=== PATIENT | male | born 2000 | race Caucasian/White ===

== ENCOUNTER 2024-05-08 16:38 | Emergency (ER) | payer OTHER, SELFPAY ==
[2024-05-08 16:39] VITALS: BP 134/75; PULSE 71; RESP 14; TEMP 36.4; O2SAT 98; BMI 28.8
--- NOTE | 2024-05-08 16:52 | ED_ITS ---
HPI - Wound/Laceration <Jami Stephens PA-C - Last Filed: 05/08/24 18:24> General Chief Complaint: Wound/Laceration Stated Complaint: lac on rt leg Time Seen by Provider: 05/08/24 16:52 Source: patient Mode of arrival: Ambulatory History of Present Illness HPI narrative: Mr. De La Rosa is a pleasant 23-year-old male with no reported past medical history who presents to the emergency department for a right ludwig laceration that occurred approximately 5 hours prior to arrival. [place] he collided with the person sitting next to him and that person's snowboard sliced his right ludwig. The snowboard sliced through his no pants and caused an anterior, mid ludwig straight laceration. Patient reported that he did have significant bleeding down the leg [place] with immediate cessation of bleeding. He reports only mild discomfort from the laceration right now, no other injuries from the fall. No pain with ambulation. States that his Tdap is up-to-date. He took no medications prior to arrival. Related Data Allergies Allergy/AdvReac Type Severity Reaction Status Date / Time No Known Drug Allergies Allergy Verified 05/08/24 16:46 Review of Systems <Jami Stephens PA-C - Last Filed: 05/08/24 18:24> Review of Systems ROS Unobtainable: All systems reviewed & are unremarkable except as noted in HPI and below Patient History <Jami Stephens PA-C - Last Filed: 05/08/24 18:24> Social History Smoking Status: Unknown if ever smoked Smoking Status: Unknown if ever smoked Exam <Jami Stephens PA-C - Last Filed: 05/08/24 18:24> Narrative Exam Narrative: GENERAL: 23 year old patient appears stated age. Well-developed patient, in no acute distress. HEAD: Atraumatic. Normocephalic. EYES: Extraocular motions intact. No scleral icterus. No injection or drainage. ENT: Nose without bleeding, purulent drainage. NECK: Trachea midline. Cervical ROM intact. CARDIOVASCULAR: Regular rate and rhythm. Strong DP and PT pulses bilaterally. RESPIRATORY: Nonlabored respirations. EXTREMITIES: No edema or joint tenderness. Proximally 4 cm linear laceration across the anterior right mid ludwig. Bleeding controlled with direct pressure however bleeding does resume after Removing pressure with slow ooze. No bony ludwig, knee, ankle tenderness. BACK: Nontender without deformity or crepitance. NEURO: AOx3. Clear speech. Moves all 4 extremities appropriately. Initial Vital Signs Initial Vital Signs: Vital Signs Temperature 97.6 F 05/08/24 16:39 Pulse Rate 71 05/08/24 16:39 Respiratory Rate 14 05/08/24 16:39 Blood Pressure 134/75 05/08/24 16:39 Pulse Oximetry 98 05/08/24 16:39 Oxygen Delivery Method Room Air 05/08/24 16:39 <Daniella Vargas MD - Last Filed: 05/26/24 07:36> Initial Vital Signs Initial Vital Signs: Vital Signs Temperature 97.6 F 05/08/24 16:39 Pulse Rate 71 05/08/24 16:39 Respiratory Rate 14 05/08/24 16:39 Blood Pressure 134/75 05/08/24 16:39 Pulse Oximetry 98 05/08/24 16:39 Oxygen Delivery Method Room Air 05/08/24 16:39 Procedures <Jami Stephens PA-C - Last Filed: 05/08/24 18:24> Laceration Repair Laceration 1: Time of procedure: 18:00 Site: lower extremity (middle ludwig) Side (If applicable): right Size (cm): 4 Description: linear Depth: simple, single layer Local Anesthetic: lidocaine 1% and with epi Amount of anesthesia used (mL): 5 Pre-repair: wound explored and irrigated extensively (cleansed with betadine diluted) Skin layer suture size: 4-0 Number of sutures: 7 Technique: simple, interrupted Course <Jami Stephens PA-C - Last Filed: 05/08/24 18:24> Orders Ordered: Discontinued Medications Acetaminophen (Acetaminophen 325 Mg Tablet) 975 mg PO NOW ONE Stop: 05/08/24 17:07 Last Admin: 05/08/24 17:10 Dose: 975 mg Documented By: YULISSA Bacitracin (Bacitracin Oint 0.9 Gm Pckt) 1 applic TOP NOW ONE Stop: 05/08/24 18:06 Last Admin: 05/08/24 18:11 Dose: 1 applic Documented By: YULISSA Cephalexin HCl (Cephalexin 250 Mg Capsule) 500 mg PO NOW ONE Stop: 05/08/24 18:06 Last Admin: 05/08/24 18:11 Dose: 500 mg Documented By: YULISSA Ibuprofen (Ibuprofen 400 Mg Tablet) 400 mg PO NOW ONE Stop: 05/08/24 17:07 Last Admin: 05/08/24 17:10 Dose: 400 mg Documented By: YULISSA Lidocaine/Epinephrine (Lidocaine 1% W/Epi 20ml) 5 ml SUBCUT NOW ONE Stop: 05/08/24 17:07 Last Admin: 05/08/24 17:13 Dose: 5 ml Documented By: YULISSA Vital Signs Vital signs: Vital Signs - 8 hr 05/08/24 16:39 Temperature 97.6 F Pulse Rate 71 Respiratory Rate 14 Blood Pressure 134/75 Pulse Oximetry 98 Oxygen Delivery Method Room Air <Daniella Vargas MD - Last Filed: 05/26/24 07:36> Orders Ordered: Discontinued Medications Acetaminophen (Acetaminophen 325 Mg Tablet) 975 mg PO NOW ONE Stop: 05/08/24 17:07 Last Admin: 05/08/24 17:10 Dose: 975 mg Documented By: YULISSA Bacitracin (Bacitracin Oint 0.9 Gm Pckt) 1 applic TOP NOW ONE Stop: 05/08/24 18:06 Last Admin: 05/08/24 18:11 Dose: 1 applic Documented By: YULISSA Cephalexin HCl (Cephalexin 250 Mg Capsule) 500 mg PO NOW ONE Stop: 05/08/24 18:06 Last Admin: 05/08/24 18:11 Dose: 500 mg Documented By: YULISSA Ibuprofen (Ibuprofen 400 Mg Tablet) 400 mg PO NOW ONE Stop: 05/08/24 17:07 Last Admin: 05/08/24 17:10 Dose: 400 mg Documented By: YULISSA Lidocaine/Epinephrine (Lidocaine 1% W/Epi 20ml) 5 ml SUBCUT NOW ONE Stop: 05/08/24 17:07 Last Admin: 05/08/24 17:13 Dose: 5 ml Documented By: YULISSA Vital Signs Vital signs: Vital Signs - 8 hr 05/08/24 16:39 Temperature 97.6 F Pulse Rate 71 Respiratory Rate 14 Blood Pressure 134/75 Pulse Oximetry 98 Oxygen Delivery Method Room Air MDM - Wound/Laceration <Jami Stephens PA-C - Last Filed: 05/08/24 18:24> [facility] Narrative Medical decision making narrative: 23-year-old male presents to the emergency department for a laceration to his right ludwig that occurred 5 hours prior to arrival. Tdap is reported up-to-date < 5 years. Differential diagnosis includes but is not limited to laceration, infection, foreign body, bony injury, etc. On exam patient is in no acute distress, nontoxic appearing, vital signs within normal limits. He has a 4 cm linear laceration across the middle of the right ludwig. Slow ooze bleeding Controlled with direct pressure. Right lower extremity is neurovascularly intact with strong pulses, no bony tenderness. After shared decision-making with the patient, we will proceed with ibuprofen and Tylenol for pain, lidocaine with epi for wound, and laceration repair with sutures. Patient tolerated procedure well, 7 sutures placed, advised removal in 8-10 days. Because of the dirty nature of the wound occurring through the patient's pant leg, we will treat empirically with cephalexin 3 times a day x5 days. First dose of antibiotic was given in the ER, bacitracin and nonadherent dressing applied to the wound. Extensively discussed proper wound care and signs and symptoms of infection to return to the ER for. Patient verbalized understanding of all information and is stable for discharge. Discharge Plan Departure Patient Disposition: Home Clinical Impression: Laceration of leg, right Instructions: DI for Laceration Repair Activity Restrictions/Additional Instructions: Today you had a laceration to your right ludwig. We have placed 7 sutures. They need to be removed in 8-10 days. You may do this in your doctor's office, the [id number], or here if necessary. Please keep the dressing on your wound clean, dry, and intact for the next 24 hours. After this time, you may remove the dressing and gently clean the wound with soap and water, then pat dry. Keep the wound clean and covered. Avoid soaking the wound in any water such as a bath, pool, or the ocean. If you develop any signs of wound infection such as increased redness, pus drainage, streaking redness, or fevers, please return to the ER immediately for evaluation. Once sutures are removed and the wound has healed, apply sunscreen daily to reduce the appearance of scars. Please take Ibuprofen (Motrin/Advil) or Acetaminophen (Tylenol) for pain. These are available over the counter. You may take Ibuprofen 600 mg every 8 hours with food for pain. You may also take Acetaminophen 650 mg every 4-6 hours for pain. Do not exceed 3000 mg of Tylenol a day as this can cause liver damage. Do not drink alcohol with either of these medications. Please follow up with your primary care doctor within the next 2-3 days for ER follow-up. (If you do not have a PCP you can call [phone]. to schedule an appointment with an [facility] Primary Care Provider) IF YOU DEVELOP ANY NEW OR WORSENING SYMPTOMS, RETURN TO THE ER! Please read the attached instructions, they highlight more specific treatments and interventions for you at home. Thank you for letting me participate in your care, Jami Stephens PA-C Stand Alone Forms: Patient Portal/API/Survey ED Sign-out <Daniella Vargas MD - Last Filed: 05/26/24 07:36> Cosign ED Attending Venuature Attestation: I was immediately available in the department for consultation throughout this patient's visit. Daniella Vargas MD
[2024-05-08] MEDS: IBUPROFEN 400 MG TABLET PO (17:10)
[2024-05-08] MEDS: ACETAMINOPHEN 325 MG TABLET 975 MG PO (17:10)
[2024-05-08] MEDS: LIDOCAINE 1% W/EPI 20ML 5 ML SUBCUT (17:13)
[2024-05-08] MEDS: BACITRACIN OINT 0.9 GM PCKT 1 APPLIC TOP (18:11)
[2024-05-08] MEDS: cephALEXin 250 MG CAPSULE 500 MG PO (18:11)
[2024-05-08 18:29] VITALS: BP 130/74; PULSE 72; RESP 16; O2SAT 99
== END 2024-05-08 18:30 | disposition home or self-care (01) ==
PROVIDERS: Emergency Provider Physician Assistant
DX: S81.811A Laceration without foreign body, right lower leg, initial encounter (principal); W22.8XXA Striking against or struck by other objects, initial encounter
CPT/HCPCS: 12002; 99283